=== PATIENT | female | born 1945 ===

== ENCOUNTER 2016-09-11 11:58 | Emergency (ER) | payer BC ==
[2016-09-11 12:34] VITALS: BP 166/89
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
== END 2016-09-11 14:15 | disposition home or self-care (01) ==
LOC: UCEAST 11:58
DX: R21 Rash and other nonspecific skin eruption (principal)
CPT/HCPCS: 99211; G0463